=== PATIENT | male | born 1950 | race Caucasian/White ===

== ENCOUNTER 2025-05-10 09:24 | Emergency (ER) | payer BC, MEDICARE ==
--- NOTE | 2025-05-10 10:27 | ED ---
General Adult HPI - General Source: patient, RN notes reviewed, old records reviewed Mode of arrival: ambulatory Limitations: no limitations <Florencio Roberts - Last Filed: 05/10/25 15:01> <Paresh Albert - Last Filed: 05/10/25 18:10> - General Chief complaint: Recheck/Abnormal Lab/Rx Stated complaint: Urogenital Time Seen by Provider: 05/10/25 09:40 - History of Present Illness Initial comments: This is a 74-year-old male who presents to the emergency department stating that yesterday he had a bowel movement and there was quite a bit of blood in it and it was bright red. Patient states today he urinated and there was bright red blood from his urethra. Patient denies any abdominal pain. Patient [place] any penile pain. Patient has any dysuria, or urinary frequency. Patient has any back pain patient has any fever chills. (Florencio Roberts) - Related Data Previous Rx's Medication Instructions Recorded Cephalexin [Keflex] 500 mg PO Q12HR 5 Days #10 cap 05/10/25 Allergies Allergy/AdvReac Type Severity Reaction Status Date / Time Sulfa (Sulfonamide Allergy Rash/Hives Verified 05/10/25 09:42 Antibiotics) Review of Systems ROS Other: All systems not noted in ROS Statement are negative. <Florencio Roberts - Last Filed: 05/10/25 15:01> ROS Other: All systems not noted in ROS Statement are negative. <Paresh Albert - Last Filed: 05/10/25 18:10> ROS Statement: Those systems with pertinent positive or pertinent negative responses have been documented in the HPI. Past Medical History Past Medical History: Diabetes Mellitus, Hyperlipidemia, Hypertension, Seizure Disorder Additional Past Medical History / Comment(s): Sleep apnea History of Any Multi-Drug Resistant Organisms: None Reported Past Surgical History: Heart Catheterization With Stent Past Psychological History: No Psychological Hx Reported Smoking Status: Never smoker Past Alcohol Use History: None Reported Past Drug Use History: None Reported <Florencio Roberts - Last Filed: 05/10/25 15:01> General Exam Limitations: no limitations <Florencio Roberts - Last Filed: 05/10/25 15:01> - General Exam Comments Initial Comments: GENERAL: Patient is well-developed and well-nourished. Patient is nontoxic and well- hydrated and is in no acute distress. ENT: Neck is soft and supple. No significant lymphadenopathy is noted. Oropharynx is clear. Moist mucous membranes. Neck has full range of motion without eliciting any pain. EYES: The sclera were anicteric and conjunctiva were pink and moist. Extraocular movements were intact and pupils were equal round and reactive to light. Eyelids were unremarkable. PULMONARY: Unlabored respirations. Good breath sounds bilaterally. No audible rales rhonchi or wheezing was noted. CARDIOVASCULAR: There is a regular rate and rhythm without any murmurs gallops or rubs. Femoral pulses are equal bilaterally ABDOMEN: Soft and nontender with normal bowel sounds. No palpable organomegaly was noted. There is no palpable pulsatile mass. RECTAL: Rectal exam showed no gross blood stool was brown SKIN: Skin is clear with no lesions or rashes and otherwise unremarkable. NEUROLOGIC: Patient is alert and oriented x3. Cranial nerves II through XII are grossly intact. Motor and sensory are also intact. Normal speech, volume and content. Symmetrical smile. MUSCULOSKELETAL: Normal extremities with adequate strength and full range of motion. LYMPHATICS: No significant lymphadenopathy is noted PSYCHIATRIC: Normal psychiatric evaluation. (Florencio Roberts) Course Vital Signs 05/10/25 05/10/25 05/10/25 09:39 10:39 13:00 Temperature 97.5 F L Pulse Rate 66 61 60 Respiratory 20 18 14 Rate Blood Pressure 159/63 141/70 138/77 O2 Sat by Pulse 99 97 Oximetry 05/10/25 16:29 Temperature 97.8 F Pulse Rate 68 Respiratory 18 Rate Blood Pressure 151/77 O2 Sat by Pulse 100 Oximetry Medical Decision Making - Lab Data Result diagrams: 05/10/25 10:35 05/10/25 10:35 <Florencio Roberts - Last Filed: 05/10/25 15:01> - Lab Data Result diagrams: 05/10/25 10:35 05/10/25 10:35 <Paresh Albert - Last Filed: 05/10/25 18:10> - Medical Decision Making Was pt. sent in by a medical professional or institution (, PA, CORRUGATOR OPERATOR, urgent care, hospital, or long-term...) When possible be specific @ -No Did you speak to anyone other than the patient for history (EMS, parent, family, police, friend...)? What history was obtained from this source @ -[No] Did you review nursing and triage notes (agree or disagree)? Why? @ -[I reviewed and agree with nursing and triage notes] Were old charts reviewed (outside hosp., previous admission, EMS record, old EKG, old radiological studies, urgent care reports/EKG's, long-term records)? Report findings @ -[No old charts were reviewed] Differential Diagnosis? @ -Differential GI Bleed: Esophageal varices, aortoenteric fistula, Alesia-Ivey, gastritis, peptic ulcer disease, diverticulosis, inflammatory bowel disease, hemorrhoids, fissure, colitis, malignancy, Meckel's diverticulum, this is not meant to be an all- inclusive list. EKG interpreted by me (3pts min.). @ -[As above] X-rays interpreted by me (1pt min.). @ -[None done] CT interpreted by me (1pt min.). @ -[None done] U/S interpreted by me (1pt. min.). @ -[None done] What testing was considered but not performed or refused? (CT, X-rays, U/S, labs)? Why? @ -[None] What meds were considered but not given or refused? Why? @ -[None] Did you discuss the management of the patient with other professionals (professionals i.e. , PA, CORRUGATOR OPERATOR, lab, RT, psych nurse, social services counselor, assistant quality manager, teacher, county health officer, counseling case manager)? Give summary @ -[No] Was smoking cessation discussed for >3mins.? @ -[No] Was critical care preformed (if so, how long)? @ -[No] Were there social determinants of health that impacted care today? How? (Homelessness, low income, unemployed, alcoholism, drug addiction, transportation, low edu. Level, literacy, decrease access to med. care, intermediate, rehab)? @ -[No] Was there de-escalation of care discussed even if they declined (Discuss DNR or withdrawal of care, Hospice)? DNR status @ -[No] What co-morbidities impacted this encounter? (DM, HTN, Smoking, COPD, CAD, Cancer, CVA, ARF, Chemo, Hep., AIDS, mental health diagnosis, sleep apnea, morbid obesity)? @ -[None] Was patient admitted / discharged? Hospital course, mention meds given and route, prescriptions, significant lab abnormalities, going to OR and other pertinent info. @ -Patient had hematuria so the patient had a CAT scan ordered and that will be followed up by Dr. Albert at 3 PM he will take over the care of the patient (Florencio Roberts) Patient signed out to me pending results of CT imaging. Patient presents with painless hematuria. Has been ongoing for the last 1 to 2 days. Thought it might be bloody stool however workup by prior provider does reveal that it is hematuria. Guaiac negative and rectal exam unremarkable. CT imaging of the abdomen pelvis was ordered. This is pending at this time. CT abdomen pelvis shows no obvious acute abnormalities. Exam of the bladder is limited secondary to artifact from patient's hip prostheses. I have did the patient. He will be discharged home at this time. As it is a holiday weekend, I will empirically treat for infection at this time as it is unlikely for him to follow-up with urology in the next few days. Patient was in agreement this plan. He will be started on Keflex. Given follow-up information for Dr. Lomax. Strict return precautions discussed. I instructed the patient to follow up with their PCP in the next 1-3 days. I explained that the patient should return to the emergency department if they experience any worsening symptoms. Strict return precautions were discussed with the patient. The patient expressed understanding of these instructions. I answered all questions that the patient had. The patient was discharged home in good condition with their prescriptions and follow up information. Diagnosis/symptom? @ -Hematuria of unknown etiology Acute, or Chronic, or Acute on Chronic? @ -Acute Uncomplicated (without systemic symptoms) or Complicated (systemic symptoms)? @ -Uncomplicated Side effects of treatment? @ -None Exacerbation, Progression, or Severe Exacerbation] @ -No Poses a threat to life or bodily function? @ -Unlikely at this time (Paresh Albert) - Lab Data Lab Results 05/10/25 05/10/25 05/10/25 Range/Units 10:35 10:35 10:35 WBC 3.80 L (4.50-10.00) 10*3/uL RBC 4.46 (4.40-5.60) 10*6/uL Hgb 12.7 L (13.0-17.0) g/dL Hct 39.1 L (39.6-50.0) % MCV 87.7 (80.0-97.0) fL MCH 28.5 (27.0-32.0) pg MCHC 32.5 (32.0-37.0) g/dL Plt Count 175 (140-440) 10*3/uL MPV 10.4 (9.5-12.2) fL Immature Gran % (Auto) 0.8 % Neutrophils % 51.2 % Lymphocytes % 33.2 % Monocytes % 13.2 % Eosinophils % 1.3 % Basophils % 0.3 % Immature Gran # 0.03 (0.00-0.04) 10*3/uL Neutrophils # 1.95 (1.80-7.70) 10*3/uL Lymphocytes # 1.26 (0.90-5.00) 10*3/uL Monocytes # 0.50 (0.20-1.00) 10*3/uL Eosinophils # 0.05 (0.04-0.35) 10*3/uL Basophils # 0.01 (0.00-0.10) 10*3/uL PT 11.6 (10.0-12.5) sec INR 1.1 (<1.2) APTT 34.8 H (22.0-30.0) sec Sodium (137-145) mmol/L Potassium (3.5-5.1) mmol/L Chloride (98-107) mmol/L Carbon Dioxide (22-30) mmol/L Anion Gap mmol/L BUN (9-20) mg/dL Creatinine (0.66-1.25) mg/dL Est GFR (CKD-EPI)AfAm (>60 ml/min/1.73 sqM) Est GFR (CKD-EPI)NonAf (>60 ml/min/1.73 sqM) Glucose (74-99) mg/dL Calcium (8.4-10.2) mg/dL Total Bilirubin (0.2-1.3) mg/dL AST (17-59) U/L ALT (4-49) U/L Alkaline Phosphatase (38-126) U/L Total Protein (6.3-8.2) g/dL Albumin (3.5-5.0) g/dL Urine Color Urine Appearance (Clear) Urine pH (5.0-8.0) Ur Specific [place] (1.001-1.035) Urine Protein (Negative) Urine Glucose (UA) (Negative) Urine Ketones (Negative) Urine Blood (Negative) Urine Nitrite (Negative) Urine Bilirubin (Negative) Urine Urobilinogen (<2.0) mg/dL Ur Leukocyte Esterase (Negative) Urine RBC (0-5) /hpf Urine WBC (0-5) /hpf Stool Occult Blood Negative (Negative) 05/10/25 05/10/25 Range/Units 10:35 12:59 WBC (4.50-10.00) 10*3/uL RBC (4.40-5.60) 10*6/uL Hgb (13.0-17.0) g/dL Hct (39.6-50.0) % MCV (80.0-97.0) fL MCH (27.0-32.0) pg MCHC (32.0-37.0) g/dL Plt Count (140-440) 10*3/uL MPV (9.5-12.2) fL Immature Gran % (Auto) % Neutrophils % % Lymphocytes % % Monocytes % % Eosinophils % % Basophils % % Immature Gran # (0.00-0.04) 10*3/uL Neutrophils # (1.80-7.70) 10*3/uL Lymphocytes # (0.90-5.00) 10*3/uL Monocytes # (0.20-1.00) 10*3/uL Eosinophils # (0.04-0.35) 10*3/uL Basophils # (0.00-0.10) 10*3/uL PT (10.0-12.5) sec INR (<1.2) APTT (22.0-30.0) sec Sodium 140 (137-145) mmol/L Potassium 4.6 (3.5-5.1) mmol/L Chloride 105 (98-107) mmol/L Carbon Dioxide 23 (22-30) mmol/L Anion Gap 12 mmol/L BUN 23 H (9-20) mg/dL Creatinine 1.42 H (0.66-1.25) mg/dL Est GFR (CKD-EPI)AfAm 56 (>60 ml/min/1.73 sqM) Est GFR (CKD-EPI)NonAf 48 (>60 ml/min/1.73 sqM) Glucose 210 H (74-99) mg/dL Calcium 9.2 (8.4-10.2) mg/dL Total Bilirubin 0.6 (0.2-1.3) mg/dL AST 20 (17-59) U/L ALT 17 (4-49) U/L Alkaline Phosphatase 45 (38-126) U/L Total Protein 6.2 L (6.3-8.2) g/dL Albumin 3.6 (3.5-5.0) g/dL Urine Color Red Urine Appearance Turbid (Clear) Urine pH 6.0 (5.0-8.0) Ur Specific [place] 1.020 (1.001-1.035) Urine Protein Trace H (Negative) Urine Glucose (UA) Negative (Negative) Urine Ketones Trace H (Negative) Urine Blood Large H (Negative) Urine Nitrite Negative (Negative) Urine Bilirubin Negative (Negative) Urine Urobilinogen <2.0 (<2.0) mg/dL Ur Leukocyte Esterase Small H (Negative) Urine RBC >182 H (0-5) /hpf Urine WBC 11 H (0-5) /hpf Stool Occult Blood (Negative) Disposition <Florencio Roberts - Last Filed: 05/10/25 15:01> Is patient prescribed a controlled substance at d/c from ED?: No Time of Disposition: 16:19 <Paresh Albert - Last Filed: 05/10/25 18:10> Clinical Impression: Hematuria Disposition: HOME SELF-CARE Condition: Good Instructions (If sedation given, give patient instructions): Hematuria (ED) Prescriptions: Cephalexin [Keflex] 500 mg PO Q12HR 5 Days #10 cap Referrals: Nonstaff,Physician [Primary Care Provider] - 1-2 days Jack Castillo MD [STAFF PHYSICIAN] - 1-2 days
[2025-05-10 10:55] LABS: Basophils # (A) 0.01 10*3/uL (0.00-0.10); Basophils % (A) 0.3 %; Eosinophils # (A) 0.05 10*3/uL (0.04-0.35); Eosinophils % (A) 1.3 %; HCT 39.1 % (39.6-50.0); HGB 12.7 g/dL (13.0-17.0); Lymphocytes # (A) 1.26 10*3/uL (0.90-5.00); Lymphocytes % (A) 33.2 %; MCH 28.5 pg (27.0-32.0); MCHC 32.5 g/dL (32.0-37.0); MCV 87.7 fL (80.0-97.0); Monocytes # (A) 0.50 10*3/uL (0.20-1.00); Monocytes % (A) 13.2 %; Neutrophils # (A) 1.95 10*3/uL (1.80-7.70); Neutrophils % (A) 51.2 %; Platelet Count 175 10*3/uL (140-440); RBC 4.46 10*6/uL (4.40-5.60); RDW 14.7 % (11.5-14.5); WBC 3.80 10*3/uL (4.50-10.00)
[2025-05-10 11:11] LABS: INR 1.1 (<1.2); Partial Thromboplastin Time 34.8 sec (22.0-30.0); Prothrombin Time 11.6 sec (10.0-12.5)
[2025-05-10 11:16] LABS: ALT 17 U/L (4-49); AST 20 U/L (17-59); African American GFR (CKD) 56 (>60 ml/min/1.73 sqM); Albumin 3.6 g/dL (3.5-5.0); Alkaline Phosphatase 45 U/L (38-126); Anion Gap 12 mmol/L; Blood Urea Nitrogen 23 mg/dL (9-20); Calcium 9.2 mg/dL (8.4-10.2); Carbon Dioxide 23 mmol/L (22-30); Chloride 105 mmol/L (98-107); Glucose 210 mg/dL (74-99); Non-African American GFR(CKD) 48 (>60 ml/min/1.73 sqM); Potassium 4.6 mmol/L (3.5-5.1); Sodium 140 mmol/L (137-145); Total Protein 6.2 g/dL (6.3-8.2)
[2025-05-10 14:16] LABS: Bilirubin,Urine Negative (Negative); Blood,Urine Large (Negative); Color,Urine Red; Glucose,Urine (UA) Negative (Negative); Ketones,Urine Trace (Negative); Leukocyte Esterase,Urine Small (Negative); Nitrite,Urine Negative (Negative); PH, Urine 6.0 (5.0-8.0); Protein,Urine Trace (Negative); RBC,Urine >182 /hpf (0-5); Specific Gravity,Urine 1.020 (1.001-1.035); Urobilinogen,Urine <2.0 mg/dL (<2.0); WBC,Urine 11 /hpf (0-5)
--- NOTE | 2025-05-10 15:59 | CT ---
EXAMINATION TYPE: CT abdomen pelvis w con DATE OF EXAM: 05/10/2025 COMPARISON: None CLINICAL INDICATION: Male, 74 years old with history of Hematuria; PHH, pt states was having rectal b leeding and now having hematuria since yesterday. TECHNIQUE: Performed without Oral Contrast and with IV Contrast, patient injected with 80ml mL of Isovue 300. CT DLP: 1635.[address] CTDI: mGy Automated exposure control for dose reduction was used. FINDINGS: The lung bases are clear. There is surgical absence of the gallbladder. There is no biliary ductal dilatation. There is no focal mass or organomegaly involving the liver, pancreas, spleen or adrenal glands. There are a few small well-circumscribed hypodense lesions within the liver most likely representing simpl e hepatic cysts. There is no solid renal mass or hydronephrosis. There are multiple small cysts of the kidneys. There are no renal calcifications with the exception of a small calcification associated with the posterior wall of a posterior left renal cyst. The caliber the abdominal aorta is normal is no retroperitoneal adenopathy or hemorrhage. The bowel loops are normal in caliber and there is no evidence of dilatation or obstruction. No infla mmatory changes are identified in the bowel wall or mesentery. There is no free intraperitoneal air or fluid. Evaluation of pelvic structures including the urinary bladder is limited due to metallic artifact fro m bilateral hip prosthetics. There is a fat-containing right inguinal hernia. There are postsurgical changes of lumbar fusion from L3 through L5. There are no focal osseous lesion s. IMPRESSION: 1. No acute changes within the abdomen or pelvis. 2. No renal calcifications or hydronephrosis. 3. Limited evaluation of the urinary bladder and pelvic structures due to metallic artifact from bila teral hip prostheses. 4. Multiple small hepatic cysts. [facility], , 05/10/2025 3:56 PM
[2025-05-10] MEDS: CEPHALEXIN 500 MG CAP PO STA (16:27)
[2025-05-10 16:37] VITALS: BP 151/77; PULSE 68; RESP 18; TEMP 97.8
== END 2025-05-10 16:44 | disposition home or self-care (01) ==
LOC: EC 09:24
DX: R31.9 Hematuria, unspecified (principal); N48.89 Other specified disorders of penis; Z88.2 Allergy status to sulfonamides
CPT/HCPCS: 36415; 80053; 85025; 85610; 85730; 82272; 81001; 87086; 74177; 99284; Q9967